=== PATIENT | male | born 1995 | race African-American/Black ===

== ENCOUNTER → 2021-05-19 | Outpatient (CLI) | payer OTHER ==
--- NOTE | 2021-05-19 10:34 | REP ---
INDICATION: PAIN IN RT ANKLE AND JOINTS OF RT FOOT COMPARISON: None. TECHNIQUE: AP and lateral views right ankle. FINDINGS: The osseous structures and joint spaces are intact and normal. There is no evidence for acute fracture or dislocation. Surrounding soft tissues are unremarkable. No subcutaneous emphysema or radiodense foreign body. IMPRESSION: Age-appropriate examination. No acute fracture or dislocation. <Electronically signed by Pb Cardoso > 05/19/21 [id number]
--- NOTE | 2021-05-19 10:38 | REP ---
INDICATION: PAIN IN RT ANKLE AND JOINTS OF RT FOOT COMPARISON: None. TECHNIQUE: AP, lateral, bilateral oblique views right foot. FINDINGS: The osseous structures and joint spaces are intact and normal. There is no evidence for acute fracture or dislocation. Surrounding soft tissues are unremarkable. No subcutaneous emphysema or radiodense foreign body. IMPRESSION: . No acute fracture or dislocation. <Electronically signed by Pb Cardoso > 05/19/21 [id number]
== END ==
LOC: M RAD 10:05
PROVIDERS: ATTEND Physician Assistant
DX: M25.571 Pain in right ankle and joints of right foot (principal)

== ENCOUNTER 2021-11-02 10:32 | Emergency (ER) | payer OTHER ==
[~2021-11-02] VITALS: Ht 165.1 cm; Wt 64.5 kg
[2021-11-02 12:01] LABS: HEMATOCRIT 40.7 % (42.0-52.0); HEMOGLOBIN 14.1 g/dl (13.5-17.5); MEAN CORPUSCULAR HEMOGLOBIN 30.7 pg (27.0-33.0); MEAN CORPUSCULAR HGB CONC 34.6 g/dl (32.0-36.5); MEAN CORPUSCULAR VOLUME 88.7 fl (80.0-96.0); PLATELET COUNT, AUTOMATED 181 10^3/uL (150-450); RED BLOOD COUNT 4.59 10^6/uL (4.30-6.10); WHITE BLOOD COUNT 7.1 10^3/uL (4.0-10.0)
[2021-11-02] MEDS ORDERED: NS 1,000 ML IV ONE (12:05)
[2021-11-02] MEDS ORDERED: KETOROLAC 30 MG/ML 1ML VIAL IV ONE (12:05)
[2021-11-02] MEDS ORDERED: ISOVUE-370 76% 100ML VIAL As Ordered ONE (12:17)
[2021-11-02 12:41] LABS: ALBUMIN 3.8 GM/DL (3.2-5.2); ATYPICAL LYMPH 9 % (0-5); BASOPHILS 1 % (0-1); BILIRUBIN,DIRECT 0.2 MG/DL (0.0-0.2); EOSINOPHILS 4 % (0-3); GIANT PLATELETS 1+; LYMPHOCYTES 20 % (16-44); MONOCYTES 4 % (0-5); NEUTROPHILS 62 % (28-66); PLATELET ESTIMATE NORMAL (NORMAL); TOTAL PROTEIN 7.4 GM/DL (6.4-8.2)
[2021-11-02 15:31] LABS: GC DNA AMPLIFICATION NEGATIVE (NEGATIVE)
[2021-11-02 16:22] VITALS: BP 118/74
== END 2021-11-02 16:24 | disposition home or self-care (01) ==
LOC: M ED 10:32
DX: U07.1 COVID-19 (principal); Z88.1 Allergy status to other antibiotic agents; Z88.2 Allergy status to sulfonamides
CPT/HCPCS: 71046; 74177; 80047; 80076; 81001; 83690; 85025; 87086; 87810; 87850; 96361; 96374; 99284; J1885; Q9967

== ENCOUNTER 2022-01-27 12:17 | Emergency (ER) | payer OTHER ==
[~2022-01-27] VITALS: Ht 165.1 cm; Wt 106.1 kg
[2022-01-27] MEDS ORDERED: LIDOCAINE VISCOUS 2% SOLN 15ML UDC SS ONE (16:10)
[2022-01-27 16:13] LABS: BASO # 0.1 10^3/uL (0.0-0.2); BASO % 0.4 % (0.0-1.0); EOS # 0.1 10^3/uL (0.0-0.5); EOS % 0.4 % (0.0-3.0); HEMATOCRIT 46.7 % (42.0-52.0); HEMOGLOBIN 16.7 g/dl (13.5-17.5); LYMPH # 1.2 10^3/uL (1.5-5.0); LYMPH % 8.9 % (24.0-44.0); MEAN CORPUSCULAR HEMOGLOBIN 31.6 pg (27.0-33.0); MEAN CORPUSCULAR HGB CONC 35.8 g/dl (32.0-36.5); MEAN CORPUSCULAR VOLUME 88.3 fl (80.0-96.0); MONO # 1.1 10^3/uL (0.0-0.8); NEUTROPHILS # 11.1 10^3/uL (1.5-8.5); NEUTROPHILS % 81.9 % (36.0-66.0); PLATELET COUNT, AUTOMATED 169 10^3/uL (150-450); RED BLOOD COUNT 5.29 10^6/uL (4.30-6.10); WHITE BLOOD COUNT 13.6 10^3/uL (4.0-10.0)
[2022-01-27] MEDS ORDERED: KETOROLAC 30 MG/ML 1ML VIAL IV ONE (16:35)
[2022-01-27] MEDS ORDERED: methylPREDNISolone 125MG 2ML VIAL IV ONE (16:35)
[2022-01-27 16:39] LABS: BLOOD UREA NITROGEN 13 MG/DL (7-18); CALCIUM LEVEL 9.9 MG/DL (8.5-10.1); CARBON DIOXIDE LEVEL 27 MEQ/L (21-32); CHLORIDE LEVEL 105 MEQ/L (98-107); CREATININE FOR GFR 1.19 MG/DL (0.70-1.30); GLOMERULAR FILTRATION RATE > 60.0 (>60); GLUCOSE, FASTING 80 MG/DL (70-100); POTASSIUM SERUM 4.5 MEQ/L (3.5-5.1); SODIUM LEVEL 138 MEQ/L (136-145)
[2022-01-27 16:45] LABS: MONO SCRN NEGATIVE (NEGATIVE)
[2022-01-27 16:53] LABS: ERYTHROCYTE SEDIMENTATION RATE 7 mm/hr (0-15)
[2022-01-27] MEDS ORDERED: AMOX875T2 PO (17:51)
[2022-01-27] MEDS ORDERED: NAPR-837 PO (17:51)
[2022-01-27] MEDS ORDERED: LIDO2SOL17 PO (17:51)
[2022-01-27 18:12] VITALS: BP 138/64
[2022-01-27] MEDS ORDERED: PRED20TA PO (20:46)
== END 2022-01-27 18:38 | disposition home or self-care (01) ==
LOC: M ED 12:17
DX: J03.90 Acute tonsillitis, unspecified (principal); Z88.2 Allergy status to sulfonamides; Z79.899 Other long term (current) drug therapy
CPT/HCPCS: 80048; 85025; 85652; 86140; 86308; 87040; 96374; 96375; 99284; J1885; J2930

== ENCOUNTER 2022-01-29 18:43 | Emergency (ER) | payer OTHER ==
[~2022-01-29] VITALS: Ht 165.1 cm; Wt 62.7 kg
[~2022-01-29 18:43] MED LIST: AMOX875T2 PO; LIDO2SOL17 PO; NAPR-837 PO; PRED20TA PO
[2022-01-29] MEDS ORDERED: ONDANSETRON 4MG ORAL DISINTEGRATING TAB PO ONE (21:50)
[2022-01-29] MEDS ORDERED: CEPHALEXIN 500 MG CAP PO ONE (21:50)
[2022-01-29] MEDS ORDERED: GI COCKTAIL 50ML BTL(HYOSCYAMINE/MAALOX/LIDOCAINE VISCOUS)(1:3:1) PO ONE (22:45)
[2022-01-29] MEDS ORDERED: ONDA4TAB6 PO (22:51)
[2022-01-29] MEDS ORDERED: CEPH500C PO (22:51)
[2022-01-29 22:54] VITALS: BP 127/69
== END 2022-01-29 23:10 | disposition home or self-care (01) ==
LOC: M ED 18:43
DX: J02.0 Streptococcal pharyngitis (principal); R12 Heartburn; Z88.1 Allergy status to other antibiotic agents; Z88.2 Allergy status to sulfonamides

== ENCOUNTER → 2022-11-10 | Outpatient (CLI) | payer OTHER ==
[~2022-11-10] MED LIST changes: +CEPH500C PO; +LIDO15SO4 PO; -LIDO2SOL17 PO; +ONDA4TAB6 PO
[2022-11-10 19:46] LABS: HIV 1&2 SCREEN CENTAUR NEGATIVE (NEGATIVE)
[2022-11-10 20:57] LABS: GC DNA AMPLIFICATION NEGATIVE (NEGATIVE)
== END ==
LOC: M WUC 15:12
PROVIDERS: ATTEND Physician Assistant
DX: R30.0 Dysuria (principal); Z20.2 Contact with and (suspected) exposure to infections with a predominantly sexual mode of transmission

== ENCOUNTER 2023-06-27 10:43 | Inpatient (IN) | payer OTHER ==
[~2023-06-27] VITALS: Ht 167.6 cm; Wt 65.9 kg
[~2023-06-27 10:43] MED LIST changes: +LIDO15SO PO; -LIDO15SO4 PO
[2023-06-27 11:06] LABS: HEMATOCRIT 44.8 % (42.0-52.0); HEMOGLOBIN 15.8 g/dl (13.5-17.5); MEAN CORPUSCULAR HEMOGLOBIN 31.7 pg (27.0-33.0); MEAN CORPUSCULAR HGB CONC 35.3 g/dl (32.0-36.5); PLATELET COUNT, AUTOMATED 195 10^3/uL (150-450); RED BLOOD COUNT 4.98 10^6/uL (4.30-6.10); WHITE BLOOD COUNT 7.9 10^3/uL (4.0-10.0)
[2023-06-27 11:31] LABS: AMPHETAMINES LEVEL URINE NEGATIVE (NEGATIVE); BARBITURATES URINE NEGATIVE (NEGATIVE); BENZODIAZEPINES URINE NEGATIVE (NEGATIVE); CANNABINOIDS URINE NEGATIVE (NEGATIVE); COCAINE METABOLITE URINE NEGATIVE (NEGATIVE); METHADONE URINE NEGATIVE (NEGATIVE); OPIATES URINE NEGATIVE (NEGATIVE); PHENCYCLIDINE URINE NEGATIVE (NEGATIVE)
[2023-06-27 11:32] LABS: ETHYL ALCOHOL (ETHANOL) < 0.003 % (0.000-0.010)
[2023-06-27 11:33] LABS: SALICYLATE LEVEL < 3.0 MG/DL (<30)
[2023-06-27 11:34] LABS: ACETAMINOPHEN LEVEL < 2.0 UG/ML (10.0-20.0); ALBUMIN 4.3 G/DL (3.2-5.2); ALKALINE PHOSPHATASE 93 U/L (46-116); ALT/SGPT 39 U/L (7.0-40); AST/SGOT 25 U/L (<34); BILIRUBIN,DIRECT 0.6 MG/DL (<0.4); BLOOD UREA NITROGEN 10 MG/DL (9-23); CALCIUM LEVEL 9.7 MG/DL (8.5-10.1); CARBON DIOXIDE LEVEL 30 MMOL/L (20-31); CHLORIDE LEVEL 107 MMOL/L (98-107); CREATININE FOR GFR 0.98 MG/DL (0.70-1.30); GLOMERULAR FILTRATION RATE > 60.0 (>60); GLUCOSE, FASTING 89 MG/DL (60-100); POTASSIUM SERUM 4.6 MMOL/L (3.5-5.1); SODIUM LEVEL 143 MMOL/L (136-145); TOTAL PROTEIN 7.8 G/DL (5.7-8.2)
[2023-06-27 11:37] LABS: THYROID STIMULATING HORMONE 4.415 uIU/ML (0.55-4.78)
[2023-06-27] MEDS ORDERED: MED REC IN PROGRESS XX SCH (15:10)
[2023-06-27] MEDS ORDERED: HOME MED LIST COMPLETE! XX SCH (15:45)
[2023-06-27] MEDS ORDERED: traZODone 50 MG TAB PO PRN (20:05)
[2023-06-27] MEDS ORDERED: MAALOX 30 ML SUSP *UDC PO PRN (20:05)
[2023-06-27] MEDS ORDERED: MOM 30ML SUSPENSION UDC PO PRN (20:05)
[2023-06-28 00:41] VITALS: BP 117/59; TEMP 97.5; O2SAT 97
[2023-06-28 06:46] VITALS: BP 109/69; TEMP 97.3; O2SAT 100
[2023-06-28] MEDS: ACETAMINOPHEN TAB 650MG DOSE (2X325MG) PO PRN (09:08)
[2023-06-28] MEDS: FLUoxetine 20MG CAP PO SCH (11:50)
[2023-06-28 16:27] VITALS: BP 127/60; TEMP 98.2; O2SAT 100
[2023-06-28] MEDS ORDERED: IBUPROFEN 600MG TAB PO PRN (21:55)
[2023-06-29 06:28] VITALS: BP 116/72; TEMP 98.5; O2SAT 96
[2023-06-29] MEDS: FLUoxetine 20MG CAP PO SCH (09:00)
[2023-06-29] MEDS ORDERED: FLUO20CA22 PO (11:13)
[2023-06-29] MEDS: ACETAMINOPHEN TAB 650MG DOSE (2X325MG) PO PRN (13:43)
[2023-06-30 06:23] VITALS: BP 123/69; TEMP 98.3; O2SAT 98
[2023-06-30] MEDS: FLUoxetine 20MG CAP PO SCH (08:54)
== END 2023-06-30 12:41 | disposition home or self-care (01) | DRG 885 ==
LOC: M ED 10:43 → EDBD 10:43 → M PSY 19:00
PROVIDERS: ADMIT Student in an Organized Health Care Education/Training Program; ATTEND Student in an Organized Health Care Education/Training Program
DX: F32.1 Major depressive disorder, single episode, moderate (principal); R45.851 Suicidal ideations; F41.1 Generalized anxiety disorder; F10.90 Alcohol use, unspecified, uncomplicated; Z88.2 Allergy status to sulfonamides; M25.561 Pain in right knee; M25.562 Pain in left knee; G47.00 Insomnia, unspecified